=== PATIENT | female | born 1990 | race Caucasian/White ===

== ENCOUNTER 2023-08-03 10:35 | Outpatient (CLI) | payer MEDICAID, SELFPAY ==
[2023-08-03 10:41] VITALS: BP 151/64; PULSE 100; TEMP 35.2
[2023-08-03 10:45] VITALS: RESP 18
--- NOTE | 2023-08-03 10:45 | US_ITS ---
WS: [id number] BIOPHYSICAL PROFILE AND LIMITED OB. HISTORY: gestational diabetes, hypertension COMPARISON: 06/30/2023 Presentation: Vertex. Cervix: Closed and normal length. Placenta: Posterior and fundal. Grade: 1 HEART: FHR of 144BPM. PRICILLA: 15.4 cm Biophysical profile: Parameters are as follows: Breathin Movement: 2 Tone: 2 Fluid volume: 2 IMPRESSION: 1. Biophysical profile score: 8/8. 2. Normal amniotic fluid.
[2023-08-03 10:46] VITALS: BMI 36.6
[2023-08-03 11:01] VITALS: BP 124/60; PULSE 90
[2023-08-03 11:21] VITALS: BP 128/65; PULSE 107
[2023-08-03 11:33] VITALS: BP 128/65; PULSE 107
== END 2023-08-03 11:35 | disposition home or self-care (01) ==
LOC: OPOB 10:36 → OBGYN 10:36
PROVIDERS: PCP Family Medicine; Visit Provider Family Medicine
DX: O24.419 Gestational diabetes mellitus in pregnancy, unspecified control (principal); O16.9 Unspecified maternal hypertension, unspecified trimester; Z3A.00 Weeks of gestation of pregnancy not specified
CPT/HCPCS: 59025; 76819; 99211

== ENCOUNTER 2023-08-12 10:23 | Outpatient (CLI) | payer MEDICAID, SELFPAY ==
--- NOTE | 2023-08-12 10:28 | US_ITS ---
WS: [id number] BIOPHYSICAL PROFILE AMNIOTIC FLUID HISTORY: gestational hypertension and diabetes COMPARISON: 08/03/2023 position: Vertex. Cardiac activity: 141 bpm. Cervix: closed. Placenta: Fundal, no previa. Placenta grade: 1 Parameters are as follows: Breathin Movement: 2 Tone: 2 Fluid volume: 2 Amniotic Fluid Index: 15.9 cm IMPRESSION: 1. Biophysical profile score: 8/8. 2. Normal amniotic fluid.
[2023-08-12 10:37] VITALS: BMI 37.0
[2023-08-12 10:49] VITALS: BP 124/58; PULSE 96
[2023-08-12 11:03] VITALS: BP 118/58; PULSE 95
[2023-08-12 11:05] VITALS: RESP 18
[2023-08-12 11:18] VITALS: BP 130/60; PULSE 100
[2023-08-12 11:33] VITALS: BP 132/60; PULSE 85
== END 2023-08-12 11:48 | disposition home or self-care (01) ==
LOC: OPOB 10:23 → OBGYN 10:35
PROVIDERS: PCP Family Medicine; Visit Provider Family Medicine
DX: O16.9 Unspecified maternal hypertension, unspecified trimester (principal); O24.419 Gestational diabetes mellitus in pregnancy, unspecified control; Z3A.00 Weeks of gestation of pregnancy not specified
CPT/HCPCS: 59025; 76819

== ENCOUNTER 2023-08-17 10:47 | Outpatient (CLI) | payer MEDICAID, SELFPAY ==
[2023-08-17] VITALS (7 sets, daily range): BP systolic 104–130; BP diastolic 65–72; PULSE 91–112; TEMP 35.8; BMI 37.2
[2023-08-17 11:14] LABS: Basophils % 0.4 %; Eosinophils # 0.1 10^3/uL (0.0-0.8); Eosinophils % 0.8 %; Hematocrit 35.7 % (36-47); Lymphocytes # 1.3 10^3/uL (0.8-4.8); Lymphocytes % 12.6 %; Mean Corpuscular HGB Conc 32.8 g/dL (30-55); Mean Corpuscular Hemoglobin 28.7 pg (27-33); Mean Corpuscular Volume 87.5 fl (85-98); Mean Platelet Volume 10.2 fL (7.4-10.4); Monocytes # 0.7 10^3/uL (0.2-0.9); Monocytes % 6.7 %; Neutrophils # 7.88 10^3/uL (1.8-7.7); Neutrophils % 78.5 %; Nucleated Red Blood Cells % 0 %; Platelet Count 217 10^3/cmm (157-399); Red Blood Count 4.08 10^6/uL (3.85-5.65); Red Cell Distribution Width 12.9 % (12.1-15.1); White Blood Count 10.04 10^3/uL (3.29-11.43)
[2023-08-17 11:37] LABS: Bilirubin Urine 1+ (Negative); Blood Urine Trace (Negative); Glucose Urine UA 1+ (Normal); Ketones Urine 1+ (Negative); Leukocyte Esterase Urine 2+ (Negative); Nitrate Urine Negative (Negative); Protein Urine 1+ (Negative); Urine Appearance Cloudy (CLEAR); Urine Color Dark Yellow (Yellow); Urine Creatinine 279 mg/dL (28-217); Urobilinogen Urine 1 mg/dL (Negative); pH Urine 5 (5-7)
[2023-08-17 11:38] LABS: Add Urine Culture? No; Bacteria Urine 2+ /hpf; RBC Urine RARE /hpf (0-2); Squamous Epithelial Cell Urine 15-25 /hpf (0-5); WBC Urine 15-25 /hpf (0-5)
[2023-08-17 12:02] LABS: UPRO/UCREAT Ratio 0.28 mg/mg CR; Urine Protein Random 78 mg/dL
[2023-08-17 12:12] LABS: Alanine Aminotransferase 11 U/L (0-33); Albumin Level 3.4 g/dL (3.5-5.2); Alkaline Phosphatase 80 U/L (35-105); Aspartate Amino Transferase 11 U/L (0-32); Blood Urea Nitrogen 6 mg/dL (6-20); Calcium 8.5 mg/dL (8.5-10.5); Carbon Dioxide 20 mmol/L (22-29); Chloride 110 mmol/L (98-107); Globulin 2.5 g/dL (1.3-4.6); Glomerular Filtration Rate 414.3 mL/min (90-130); Glucose 123 mg/dL (65-115); Osmolality Calculated 293 mOsm/kg (285-295); Sodium 142 mmol/L (136-145); Total Bilirubin 0.2 mg/dL (0.15-1.2); Total Protein 5.9 g/dL (6.6-8.7); Uric Acid 2.1 mg/dL (2.4-5.7)
== END 2023-08-17 12:45 | disposition home or self-care (01) ==
LOC: OPOB 10:47 → OBGYN 10:48
PROVIDERS: PCP Family Medicine; Visit Provider Family Medicine
DX: O26.899 Other specified pregnancy related conditions, unspecified trimester (principal); Z3A.00 Weeks of gestation of pregnancy not specified
CPT/HCPCS: 36415; 59025; 80053; 81001; 82570; 84156; 84550; 85025; 99211

== ENCOUNTER 2023-08-20 10:25 | Outpatient (CLI) | payer MEDICAID, SELFPAY ==
[2023-08-20 10:25] VITALS: BMI 37.8
[2023-08-20 10:38] VITALS: TEMP 35.9
[2023-08-20 10:39] VITALS: BP 123/60; PULSE 98
[2023-08-20 10:59] VITALS: BP 121/58; PULSE 96
--- NOTE | 2023-08-20 11:03 | US_ITS ---
WS: [id number] BIOPHYSICAL PROFILE AND LIMITED OB. HISTORY: WELL BEING, gestational HYPERTENSION AND GESTATIONAL diabetes COMPARISON: 08/12/2023 Presentation: Vertex. Cervix: Closed and normal length. Placenta: Fundal. No previa. Grade: 1 HEART: FHR of 141BPM. Biophysical profile: Parameters are as follows: Breathin Movement: 2 Tone: 2 Fluid volume: 2 Amniotic fluid index: 13.9 cm. IMPRESSION: 1. Biophysical profile score: 8/8. 2. Normal amniotic fluid.
[2023-08-20 11:37] LABS: Urine Creatinine 201 mg/dL (28-217)
[2023-08-20 11:38] LABS: UPRO/UCREAT Ratio 0.21 mg/mg CR; Urine Protein Random 43 mg/dL
[2023-08-20 12:05] VITALS: BP 121/58; PULSE 96
== END 2023-08-20 11:55 | disposition home or self-care (01) ==
LOC: OPOB 10:25 → OBGYN 10:26
PROVIDERS: PCP Family Medicine; Visit Provider Family Medicine
DX: O26.899 Other specified pregnancy related conditions, unspecified trimester (principal); Z3A.00 Weeks of gestation of pregnancy not specified
CPT/HCPCS: 59025; 76819; 82570; 84156; 99211

== ENCOUNTER 2023-08-26 09:35 | Outpatient (CLI) | payer MEDICAID, SELFPAY ==
[2023-08-26 09:35] VITALS: BMI 38.2
[2023-08-26 09:46] VITALS: BP 132/70; PULSE 110
--- NOTE | 2023-08-26 09:49 | US_ITS ---
WS: [id number] BIOPHYSICAL PROFILE AND LIMITED OB. HISTORY: GESTIONAL HYPERTENSION AND GESTIONAL DIABETIC COMPARISON: 08/20/2023 Presentation: Vertex Cervix: Closed and normal length. Placenta: Fundal, no previa. Grade: 1 HEART: FHR of 136BPM. Biophysical profile: Parameters are as follows: Breathin Movement: 2 Tone: 2 Fluid volume: 2 Amniotic fluid index: 10.8 cm. IMPRESSION: 1. Biophysical profile score: 8/8. 2. Normal amniotic fluid.
[2023-08-26 10:06] VITALS: BP 144/67; PULSE 104
[2023-08-26 10:27] VITALS: BP 129/63; PULSE 97
[2023-08-26 10:47] VITALS: BP 132/63; PULSE 86
[2023-08-26 12:21] LABS: Urine Creatinine 206 mg/dL (28-217)
[2023-08-26 12:22] LABS: UPRO/UCREAT Ratio 0.26 mg/mg CR; Urine Protein Random 53 mg/dL
== END 2023-08-26 11:00 | disposition home or self-care (01) ==
LOC: OPOB 09:36 → OBGYN 09:37
PROVIDERS: Absent Provider Family Medicine; PCP Family Medicine; Visit Provider Family Medicine
DX: O24.419 Gestational diabetes mellitus in pregnancy, unspecified control (principal); Z3A.00 Weeks of gestation of pregnancy not specified; O16.9 Unspecified maternal hypertension, unspecified trimester
CPT/HCPCS: 59025; 76819; 82570; 84156; 99211

== ENCOUNTER 2023-08-26 16:57 | Inpatient (IN) | payer MEDICAID, SELFPAY ==
[2023-08-26] VITALS (31 sets, daily range): BP systolic 101–162; BP diastolic 58–74; PULSE 88–136; RESP 14–18; TEMP 35.5–36.1; BMI 38.2
--- NOTE | 2023-08-26 17:18 | P.HP_ITS ---
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 The patient has a history of gestational hypertension and gestational diabetes. Patient is also on Keppra for seizure disorder. Patient's had a fairly unremarkable course. The patient has had good control of her glucose and blood pressure has remained fairly well controlled with a few severe's noted throughout . Patient went to [facility] and had serial ultrasounds without any concerns. The patient also has been undergoing NST with biophysical profiles weekly and they have all been reassuring and normal. labs were unremarkable. GBS was negative. Patient denies any contractions. Patient reports good movement. She has not had any vaginal bleeding or loss of fluid Present Details : 2 Para: 1 Labs Rubella: Immune RPR: Negative GBS: Negative Review of Systems General: Reports: 10 or more systems reviewed and unremarkable except in HPI and below Medications/Allergies Home Medications Medication Instructions Recorded Confirmed Last Taken Type levetiracetam 1,000 mg tablet 1,000 mg PO BID 05/19/23 05/28/23 Unknown History levetiracetam 500 mg tablet 500 mg PO DAILY 05/19/23 05/28/23 Unknown History Allergies Allergy/AdvReac Type Severity Reaction Status Date / Time No Known Allergies Allergy Unverified 05/28/23 15:04 History History History 2 Term Miscarriages/Ectopic Living Children 1 Vitals/I&O/Wt Last Vital Signs Temp 95.9 F L 08/26/23 17:03 Pulse 136 H 08/26/23 17:03 BP 143/74 08/26/23 17:03 Physical Exam Const: COMMON NORMALS: no acute distress Resp: COMMON NORMALS: normal respiratory effort and No retractions Cardio: COMMON NORMALS: no JVD and regular rate Extremity: COMMON NORMALS: no clubbing, cyanosis or edema Neuro: COMMON NORMALS: patient oriented x3, moves all extremities, no focal motor deficits and no sensory deficits noted Psych: COMMON NORMALS: mental status grossly normal Skin: COMMON NORMALS: no rashes or lesions noted Results Labs OB ([facility]): Obstetrics US 06/30/23 Obstetrics US/Biophysical Profile Hct 35.7 % (36-47) L 08/17/23 Hgb 11.70 g/dL (11.27-16.99) 08/17/23 Plt Count 217 10^3/cmm (157-399) 08/17/23 Uric Acid 2.1 mg/dL (2.4-5.7) L 08/17/23 A&P Assessment and plan (1) Gestational diabetes mellitus (GDM) affecting second : (2) Gestational hypertension affecting second : (3) Term , repeat: Patient presents today for induction of labor for gestational diabetes and gestational hypertension. Patient has been fairly well controlled with glucose since failing her 3-hour glucose tolerance test. Patient did have advanced dilation 2 cm in the office 2 days ago so we will proceed with Pitocin induction today. Proceed with routine labor management. Patient may have epidural as desired. We will proceed with fentanyl protocol for initial pain relief. Attestations Medical Necessity Statement*: Patient is admitted for induction of labor due to gestational diabetes and gestational hypertension. Coding Level of Care Code Acute Code for Chg Fwd Diagnoses Gestational diabetes mellitus (GDM) affecting second O24.419 Gestational hypertension affecting second O13.9 Term , repeat Z34.90
[2023-08-26] MEDS: oxytocin 30 UNIT/500 ML BAG IV (18:00)
[2023-08-26] MEDS: dextrose 5%-lactated ringers 1,000 ML 125 ML IV (18:00)
[2023-08-26 18:33] LABS: Basophils % 0.2 %; Eosinophils # 0.1 10^3/uL (0.0-0.8); Eosinophils % 0.6 %; Hematocrit 34.4 % (36-47); Lymphocytes # 1.9 10^3/uL (0.8-4.8); Lymphocytes % 14.3 %; Mean Corpuscular HGB Conc 32.6 g/dL (30-55); Mean Corpuscular Hemoglobin 28.3 pg (27-33); Mean Corpuscular Volume 86.9 fl (85-98); Mean Platelet Volume 10.4 fL (7.4-10.4); Monocytes % 7.6 %; Neutrophils # 9.93 10^3/uL (1.8-7.7); Neutrophils % 76.1 %; Nucleated Red Blood Cells % 0 %; Platelet Count 246 10^3/cmm (157-399); Red Blood Count 3.96 10^6/uL (3.85-5.65); Red Cell Distribution Width 12.9 % (12.1-15.1); White Blood Count 13.06 10^3/uL (3.29-11.43)
[2023-08-27] VITALS (98 sets, daily range): BP systolic 106–193; BP diastolic 53–91; PULSE 71–112; RESP 16–20; TEMP 36.1–37.4; O2SAT 88–99
[2023-08-27] MEDS: dextrose 5%-lactated ringers 1,000 ML 125 ML IV (01:46)
[2023-08-27] MEDS: lactated ringers 1,000 ML 999 ML IV ×2 (05:01→05:52)
--- NOTE | 2023-08-27 05:10 | ANES.PREANE2 ---
Pre-Anesthetic Assessment Height/Weight: Height 1.63 m Weight 101.151 kg Temp Pulse Resp BP Pulse Ox O2 Del Method 96.1 F L 74 14 127/59 99 Room Air 08/26/23 20:38 08/27/23 05:28 08/26/23 17:33 08/27/23 05:28 08/27/23 05:26 08/26/23 17:29 Preop Diagnosis: IUP labor epidural Familial anesthetic complications: none Was Beta Sachin taken within 24 hours: N/A Was Clonidine taken within 24 hours: N/A Social No alcohol and No tobacco Exam alert and oriented x 3 Airway Submandibular: within normal limits Cervical ROM: within normal limits Mallampati: Class IV Dentition: false CV/HEM Hypertension (gestational) GI Gastroesophageal Reflux Disease Metabolic Diabetes Mellitus (gestational) Neuropsych Seizure (epilepsy, last seizure 2013.) Anesthetic Plan ASA status: 3 Anesthesia: Anesthesia Evaluation and Regional (specify below) Medications/Allergies Home Medications Medication Instructions Recorded Confirmed Last Taken Type levetiracetam 1,000 mg tablet 1,000 mg PO BID 05/19/23 05/28/23 Unknown History levetiracetam 500 mg tablet 500 mg PO DAILY 05/19/23 05/28/23 Unknown History Allergies Allergy/AdvReac Type Severity Reaction Status Date / Time No Known Allergies Allergy Unverified 05/28/23 15:04 Current Medications Generic Name Dose Route Start Last Admin Trade Name Freq PRN Reason Stop Dose Admin Dextrose/Lactated Ringer's 1,000 mls @ 125 mls/hr 08/26/23 17:45 08/27/23 01:46 Dextrose 5%-Lactated Ringers IV 125 mls/hr .Q8H MAGDA Administration Oxytocin 30 unit in 500 mls @ 1 mls/hr 08/26/23 17:45 08/27/23 03:15 Pitocin IV 17 milliunit/min .Q24H MAGDA 17 mls/hr Titration Protocol 1 MILLIUNIT/MIN Lactated Ringer's 1,000 mls @ 999 mls/hr 08/26/23 21:00 08/27/23 05:01 Lactated Ringers IV 999 mls/hr .Q1H1M PRN Administration See label comments Ropivacaine 100 mg in 50 mls @ 10 mls/hr 08/26/23 21:00 08/27/23 05:27 Naropin Syringe EPIDURAL 10 mls/hr .Q5H MAGDA Administration PFSH Anesthesia Female Reproductive History : 3 Data Anesthesia 08/26/23 17:20 Short CBC 08/26/23 Range/Units 17:20 WBC 13.06 H (3.29-11.43) 10^3/uL Hgb 11.20 L (11.27-16.99) g/dL Hct 34.4 L (36-47) % MCV 86.9 (85-98) fl Plt Count 246 (157-399) 10^3/cmm Neut % (Auto) 76.1 % Neut # (Auto) 9.93 H (1.8-7.7) 10^3/uL Blood Bank 08/26/23 17:20 Blood Type A Positive Rho(D) Type Rh positive Antibody Screen Negative Cardiac Studies: No Data to Display
[2023-08-27] MEDS: ROPivacaine syringe 100 MG/50 ML SYRINGE 10 MG EPIDURAL (05:27)
--- NOTE | 2023-08-27 05:29 | ANES.PROC ---
Anesthesia Procedures Procedure/Date: 08/27/23 Epidural: Time Out Performed: Yes Consent: from patient, risks and benefits reviewed and patient agrees to proceed Lumbar Level: L4-L5 Epidural position: sitting Epidural procedure: sterile prep of area, 1% lidocaine to numb the area, 18 g needle, negative for paresthesia passed, neg for paresthesia, test dose given, 1.5% xylocaine 1:200k epi, placed PCEA, no systemic response, sterile dressing applied, L.U.D. no apparent complications and 0.2% Ropiavacaine @ mls/hr (10) Additional Comments: PARRIS at 5, negative blood/CSF upon aspiration. taped at 12 at skin
--- NOTE | 2023-08-27 06:34 | PM.OBGYPN ---
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 Patient received Pitocin overnight and had slow increase in contractions and intensity. Patient has had dilated to 7 cm. Patient has received an epidural and is now fairly comfortable. heart tones have been reassuring. Labor: Station: -3 Amniotic Membrane Status: Intact Monitor Mode: External Contraction Pattern: Regular Status: Category I Vitals/I&O/Wt Last Vital Signs Temp 96.1 F L 08/26/23 20:38 Pulse 100 08/27/23 06:31 Resp 14 08/26/23 17:33 BP 128/58 08/27/23 06:27 Pulse Ox 98 08/27/23 06:31 O2 Del Method Room Air 08/26/23 17:29 08/26/23 08/26/23 08/27/23 14:59 22:59 06:59 Intake Total 17.0 / 17.0 2312.500 / 2329.500 Balance 17.0 / 17.0 2312.500 / 2329.500 Weight last 48 hrs Weight 101.151 kg Weight 101.151 kg Physical Exam Const: COMMON NORMALS: no acute distress and patient oriented x3 Neck/C-Spine: COMMON NORMALS: no JVD Resp: COMMON NORMALS: normal respiratory effort and No retractions Cardio: COMMON NORMALS: no JVD and regular rate RATE: regular rate Extremity: COMMON NORMALS: no clubbing, cyanosis or edema Neuro: COMMON NORMALS: patient oriented x3, moves all extremities, no focal motor deficits and no sensory deficits noted Psych: COMMON NORMALS: mental status grossly normal Skin: COMMON NORMALS: no rashes or lesions noted GENERAL SKIN EXAM: no rashes or lesions noted Urinary Catheter Management: [place]: Cath Placed During This Visit: yes Reason for Continuing Indwelling Catheter: Required Immobilization for Trauma or Surgery or Anesthesia Urinary Catheter Date of Insertion: 08/27/23 Urinary Catheter Time of Insertion: 06:00 Data 08/26/23 17:20 A&P Assessment and plan (1) Gestational diabetes mellitus (GDM) affecting second : (2) Gestational hypertension affecting second : (3) Term , repeat: Continue with labor management. After informed consent was obtained, artificial rupture of membranes was performed without difficulty. She tolerated the procedure well. Clear fluid noted. Attestations Medical Necessity Statement*: Patient admitted for induction of labor secondary to gestational diabetes and hypertension. Anticipate at least 2 midnight stay. Coding Level of Care Code Acute Code for Chg Fwd Diagnoses Gestational diabetes mellitus (GDM) affecting second O24.419 Gestational hypertension affecting second O13.9 Term , repeat Z34.90
[2023-08-27] MEDS: ROPivacaine syringe 100 MG/50 ML SYRINGE 13 MG EPIDURAL (06:53)
--- NOTE | 2023-08-27 09:23 | PM.DELIVERY ---
Delivery Note: Date of delivery: August 27, 2023 Pre-delivery diagnoses: Term , gestational diabetes, gestational hypertension Post-delivery diagnoses: Same, viable female Procedure: Spontaneous vaginal delivery Delivering Physician: Dr. Lv Bains Estimated blood loss (mL): 300 Pre-Delivery Course: This is a 33-year-old G3, P2 that presented at 38 weeks for induction of labor secondary to gestational diabetes and gestational hypertension. Patient was started on Pitocin and eventually went into good contraction pattern and patient progressed as expected. No heart tone concerns prior to delivery. Delivery: Once patient was completed the patient was placed into normal lithotomy position and started pushing with each contraction. head made good progress with each push until delivery of infant's head was accomplished followed by infants body. Nuchal cord x1 was noted and was delivered through. Infant was placed on mother's abdomen and after delay the cord was clamped and cut. Delivery of the placenta occurred soon after. Review of the perineum showed small periurethral tear towards the right side that was actively bleeding. Suture was placed and bleeding subsided. Uterus was firm and bleeding was controlled. Post-Delivery Status: Stable History History History 3 Term Miscarriages/Ectopic 1 Living Children 1 A&P Assessment and plan (1) Gestational diabetes mellitus (GDM) affecting second : Continue to monitor blood sugars as needed (2) Gestational hypertension affecting second : Monitor blood pressure (3) Vaginal delivery: Proceed with routine post care. Coding Level of Care Code Acute Code for Chg Fwd Diagnoses Gestational diabetes mellitus (GDM) affecting second O24.419 Gestational hypertension affecting second O13.9 Vaginal delivery O80
[2023-08-27] MEDS: oxytocin 30 UNIT/500 ML BAG 999 UNIT IV (09:26)
[2023-08-27] MEDS: lidocaine 2% INJ 20 mL INJECTION (09:26)
[2023-08-27] MEDS: ibuprofen 800 mg tablet PO ×2 (15:00→22:13)
[2023-08-27] MEDS: flu vacc pf 2023-24 (6 mos+) 60 MCG IM (22:10)
[2023-08-27] MEDS: docusate sodium 100 mg Capsule PO (22:13)
[2023-08-27 22:35] LABS: Hematocrit 32.1 % (36-47); Mean Corpuscular HGB Conc 32.4 g/dL (30-55); Mean Corpuscular Volume 86.5 fl (85-98); Mean Platelet Volume 10.3 fL (7.4-10.4); Platelet Count 212 10^3/cmm (157-399); Red Blood Count 3.71 10^6/uL (3.85-5.65); Red Cell Distribution Width 12.9 % (12.1-15.1); White Blood Count 13.62 10^3/uL (3.29-11.43)
[2023-08-28 04:00] VITALS: BP 112/69; PULSE 69; RESP 15; TEMP 36.9; O2SAT 98
--- NOTE | 2023-08-28 07:16 | P.DS_ITS ---
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 Patient started on Pitocin and progressed as expected. The patient then delivered a viable female vaginally without difficulty. There were no complications during delivery. Patient had 1 small periurethral tear that was repaired. Her care was unremarkable. Patient is able to ambulate and urinate without difficulty. Patient's pain was well controlled. Lochia is appropriate. Information Peripartum Data: Infant Delivery Method: Vaginal Laceration description: Periurethral - 1st Degree Episiotomy description: None complications: none Physical Exam Const: COMMON NORMALS: no acute distress and patient oriented x3 Neck/C-Spine: COMMON NORMALS: no JVD Resp: COMMON NORMALS: normal respiratory effort and No retractions Cardio: COMMON NORMALS: no JVD and regular rate RATE: regular rate Extremity: COMMON NORMALS: no clubbing, cyanosis or edema Neuro: COMMON NORMALS: patient oriented x3, moves all extremities, no focal motor deficits and no sensory deficits noted Psych: COMMON NORMALS: mental status grossly normal Skin: COMMON NORMALS: no rashes or lesions noted GENERAL SKIN EXAM: no rashes or lesions noted Urinary Catheter Management: [place]: Cath Placed During This Visit: yes Reason for Continuing Indwelling Catheter: Required Immobilization for Trauma or Surgery or Anesthesia Urinary Catheter Date of Insertion: 08/27/23 Urinary Catheter Time of Insertion: 06:00 History History History 3 Term Miscarriages/Ectopic 1 Living Children 2 Discharge Data Studies Completed and Pending Laboratory Results WBC 13.62 10^3/uL (3.29-11.43) H 08/27/23 22:25 RBC 3.71 10^6/uL (3.85-5.65) L 08/27/23 22:25 Hgb 10.40 g/dL (11.27-16.99) L 08/27/23 22:25 Hct 32.1 % (36-47) L 08/27/23 22:25 MCV 86.5 fl (85-98) 08/27/23 22:25 MCH 28.0 pg (27-33) 08/27/23 22:25 MCHC 32.4 g/dL (30-55) 08/27/23 22:25 RDW 12.9 % (12.1-15.1) 08/27/23 22:25 Plt Count 212 10^3/cmm (157-399) 08/27/23 22:25 MPV 10.3 fL (7.4-10.4) 08/27/23 22:25 Neut % (Auto) 76.1 % 08/26/23 17:20 Lymph % (Auto) 14.3 % 08/26/23 17:20 [place] % (Auto) 7.6 % 08/26/23 17:20 Eos % (Auto) 0.6 % 08/26/23 17:20 Baso % (Auto) 0.2 % 08/26/23 17:20 Neut # (Auto) 9.93 10^3/uL (1.8-7.7) H 08/26/23 17:20 Lymph # (Auto) 1.9 10^3/uL (0.8-4.8) 08/26/23 17:20 [place] # (Auto) 1.0 10^3/uL (0.2-0.9) H 08/26/23 17:20 Eos # (Auto) 0.1 10^3/uL (0.0-0.8) 08/26/23 17:20 Baso # (Auto) 0.0 10^3/uL (0.0-0.1) 08/26/23 17:20 Nucleated RBC % (auto) 0 % 08/26/23 17:20 Nucleated RBCs # 0.0 /100WBC 08/26/23 17:20 Blood Type A Positive 08/26/23 17:20 Rho(D) Type Rh positive 08/26/23 17:20 Antibody Screen Negative 08/26/23 17:20 Vitals Last Vital Signs Temp 98.4 F 08/28/23 04:00 Pulse 69 08/28/23 04:00 Resp 15 08/28/23 04:00 BP 112/69 08/28/23 04:00 Pulse Ox 98 08/28/23 04:00 O2 Del Method Room Air 08/28/23 04:00 Results Labs OB ([facility]): Obstetrics US 06/30/23 Obstetrics US/Biophysical Profile Blood Type A Positive 08/26/23 Antibody Screen Negative 08/26/23 Hct 32.1 % (36-47) L 08/27/23 Hgb 10.40 g/dL (11.27-16.99) L 08/27/23 Rho(D) Type Rh positive 08/26/23 Plt Count 212 10^3/cmm (157-399) 08/27/23 Uric Acid 2.1 mg/dL (2.4-5.7) L 08/17/23 Discharge Plan Discharge Patient Disposition: Home Condition: Stable Prescriptions: Continued levetiracetam 500 mg tablet 500 mg PO DAILY levetiracetam 1,000 mg tablet 1,000 mg PO BID Discharge Orders: Discharge Order (Routine); Ordered 08/28/23 Ordered By: Lv Bains Referrals: Lv Bains MD [Primary Care Provider] - 6 Weeks Discharge Diet: Usual diet Discharge Activity: Limit activity as instructed Patient Instructions: Opioid Safety Discharge Attestations MARKET RESEARCH MANAGER Time Spent in Discharge Care*: less than 30 min Coding Level of Care Code Acute Code for Chg Fwd Diagnoses Gestational diabetes mellitus (GDM) affecting second O24.419 Gestational hypertension affecting second O13.9 Vaginal delivery O80
[2023-08-28] MEDS: measles,mumps,rubella pf Vial (w/diluent) 0.5 ML SUBCUT (07:41)
[2023-08-28 08:00] VITALS: BP 118/77; PULSE 84; RESP 18; TEMP 36.8
--- NOTE | 2023-08-28 08:00 | ANE.PACU2 ---
Inpatient post-anesthesia follow up: Airway intact: Yes Vital signs: Temperature 98.4 F Pulse Rate 70 Respiratory Rate 16 Blood Pressure 128/72 Pulse Oximetry 98 Oxygen Delivery Me thod Room Air Oxygen Flow Rate Fraction of Inspir ed Oxygen Hydration adequate: Yes Nausea and vomiting: No Pain level: 1 Mental status: Baseline
[2023-08-28] MEDS: docusate sodium 100 mg Capsule PO (09:04)
[2023-08-28] MEDS: ibuprofen 800 mg tablet PO (09:04)
[2023-08-28] MEDS: prenatal vitamin Capsule 1 CAP PO (09:04)
[2023-08-28 10:30] VITALS: BP 128/72; PULSE 70; RESP 16; TEMP 36.9
[2023-08-28 11:51] VITALS: BP 128/72; PULSE 70; RESP 16; TEMP 36.9
== END 2023-08-28 10:40 | disposition home or self-care (01) | DRG 807 ==
LOC: OPOB 16:58 → OBGYN 16:58
PROVIDERS: Admitting Provider Family Medicine; Family Provider Family Medicine; PCP Family Medicine; Visit Provider Family Medicine
DX: O24.429 Gestational diabetes mellitus in childbirth, unspecified control (principal); Z37.0 Single live birth; O13.4 Gestational [pregnancy-induced] hypertension without significant proteinuria, complicating childbirth; O69.81X0 Labor and delivery complicated by cord around neck, without compression, not applicable or unspecified; O71.82 Other specified trauma to perineum and vulva; Z3A.38 38 weeks gestation of pregnancy
CPT/HCPCS: 36415; 51702; 59025; 85025; 85027; 86850; 86900; 90471; 90686; 90707; 96372; 99211; J2590; J2795; J7120; J7121

== ENCOUNTER → 2023-09-15 13:23 | Outpatient (BNVA) | payer MEDICAID, SELFPAY | PROVIDERS: Family Provider Family Medicine; PCP Family Medicine; Visit Provider Psychiatry & Neurology Neurology | DX: G40.909 Epilepsy, unspecified, not intractable, without status epilepticus (principal) | CPT/HCPCS: 36415; 80177 ==

== ENCOUNTER 2024-08-14 20:22 | Emergency (ER) | payer MEDICAID, SELFPAY ==
[2024-08-14 20:23] VITALS: BP 137/74; PULSE 69; RESP 16; TEMP 36.9; O2SAT 96; BMI 45.3
[2024-08-14 21:10] LABS: HCG Qualitative Urine. Negative (Negative)
--- NOTE | 2024-08-14 21:12 | ED.C_ITS ---
HPI - Psych 2 General: Chief Complaint: Psychiatric Symptoms Stated Complaint: behavior Time Seen by Provider: 08/14/24 20:40 History of Present Illness: This patient is a 34-year-old white female who presents to the emergency department stating that she has been crying a lot over the past month. She has had thoughts of cutting herself earlier today. She says she has been stressed out about having to move. She states she is very worried about these thoughts actually coming to reality and she does hurt herself. She states she has had no prior suicide attempts. She states she has no psychiatric diagnoses. She does have a history of seizure disorder and states the only medication she takes is for her seizures. Associated symptoms: Reports suicidal ideation Related Data Previous Rx's Medication Instructions Recorded levetiracetam 1,000 mg tablet 1,000 mg PO BID #60 tabs 04/06/24 levetiracetam 500 mg tablet 500 mg PO DAILY #30 tabs 04/06/24 Allergies Allergy/AdvReac Type Severity Reaction Status Date / Time No Known Allergies Allergy Verified 04/06/24 14:12 Review of Systems 2 General: Reports: 10 or more systems reviewed and unremarkable except in HPI and below Psych: Reports: suicidal ideation PFSH ED 2 PFSH: Medical History Term , repeat Gestational hypertension affecting second Gestational diabetes mellitus (GDM) affecting second Social History Smoking and tobacco/nicotine status: never used tobacco/nicotine Physical Exam 2 Const: COMMON NORMALS: no acute distress, patient oriented x3 and no limitations GENERAL APPEARANCE: cooperative and comfortable HENMT: COMMON NORMALS: normocephalic, atraumatic, Normal nasal mucous membranes and turbinates present, moist oral mucous membranes and oropharynx normal HEAD & SCALP: normal to inspection, normocephalic and atraumatic F BOUCHRA & SINUS: normal facial exam NOSE: Normal nasal mucous membranes and turbinates present Eye: COMMON NORMALS: Equal, round and reactive pupils present, EOMs intact bilaterally and conjunctivae normal GENERAL EYE: appearance normal, both eyes and all related structures CONJUNCTIVA: Yes conjunctivae normal PUPIL: Yes Equal, round and reactive pupils present Neck/C-Spine: COMMON NORMALS: supple and no JVD Chest: COMMONS NORMALS: normal inspection of the chest Resp: COMMON NORMALS: normal respiratory effort and clear to auscultation bilaterally AUSCULTATION: clear to auscultation bilaterally Cardio: COMMON NORMALS: no JVD, regular rate, regular rhythm, No gallops present (Cardio), No murmurs present (Cardio) and No rub (Cardio) RATE: r egular rate RHYTHM: regular rhythm GI: COMMON NORMALS: Normal to inspection, nondistended, normoactive bowel sounds present, Soft to palpation and non-tender AUSCULTATION: Yes normoactive bowel sounds PALPATION: Yes Soft to palpation : COMMON NORMALS: Yes no CVA tenderness BLADDER/KIDNEY EXAM: Yes no CVA tenderness Back/Pelvis: COMMON NORMALS: no CVA tenderness and thoracic and lumbar spine normal to inspection Extremity: COMMON NORMALS: normal to inspection Neuro: COMMON NORMALS: patient oriented x3 and CN's II-XII intact bilaterally Psych: COMMON NORMALS: mental status grossly normal and cooperative A PPEARANCE: Yes bizarre ATTITUDE: Yes calm ACTIVITY/MOTOR BEHAVIOR: Yes psychomotor slowing SPEECH: Yes soft MOOD & AFFECT: Yes depressed mood and Yes tearful THOUGHT CONTENT: Yes Suicidality present A TTENTION/CONCENTRATION: Yes attention grossly intact MEMORY/COGNITION: Yes memory grossly intact INSIGHT: Limited insight present (Psych) JUDGEMENT: Limited judgement present (Psych) Skin: COMMON NORMALS: no rashes or lesions noted, turgor normal and no jaundice GENERAL SKIN EXAM: no rashes or lesions noted and turgor normal Course 2 Vital Signs: Vital signs: Vital Signs Temperature 98.4 F 08/14/24 20:23 Pulse Rate 69 08/14/24 20:23 Respiratory Rate 16 08/14/24 20:23 Blood Pressure 137/74 08/14/24 20:23 Pulse Oximetry 96 08/14/24 20:23 Oxygen Delivery Me thod Room Air 08/14/24 20:23 MDM - Psych Medical Decision Making This patient will need to be admitted for psychiatric evaluation and treatment. Labs are pending. We do not have any beds available at this facility. Once laboratory studies are complete staff will start looking for an available bed for the patient. She is stable. Lab Data 08/14/24 21:18 08/14/24 21:18 Laboratory Results WBC 7.30 10^3/uL (3.29-11.43) 08/14/24 21:18 RBC 4.90 10^6/uL (3.85-5.65) 08/14/24 21:18 Hgb 13.90 g/dL (11.27-16.99) 08/14/24 21:18 Hct 42.0 % (36-47) 08/14/24 21:18 MCV 85.7 fl (85-98) 08/14/24 21:18 MCH 28.4 pg (27-33) 08/14/24 21:18 MCHC 33.1 g/dL (30-55) 08/14/24 21:18 RDW 13.0 % (12.1-15.1) 08/14/24 21:18 Plt Count 271 10^3/cmm (157-399) 08/14/24 21:18 MPV 9.8 fL (7.4-10.4) 08/14/24 21:18 Neut % (Auto) 70.1 % 08/14/24 21:18 Lymph % (Auto) 21.1 % 08/14/24 21:18 [place] % (Auto) 5.2 % 08/14/24 21:18 Eos % (Auto) 2.6 % 08/14/24 21:18 Baso % (Auto) 0.7 % 08/14/24 21:18 Neut # (Auto) 5.12 10^3/uL (1.8-7.7) 08/14/24 21:18 Lymph # (Auto) 1.5 10^3/uL (0.8-4.8) 08/14/24 21:18 [place] # (Auto) 0.4 10^3/uL (0.2-0.9) 08/14/24 21:18 Eos # (Auto) 0.2 10^3/uL (0.0-0.8) 08/14/24 21:18 Baso # (Auto) 0.1 10^3/uL (0.0-0.1) 08/14/24 21:18 Nucleated RBC % (auto) 0 % 08/14/24 21:18 Nucleated RBCs # 0.0 /100WBC 08/14/24 21:18 HCG, Qual Negative (Negative) 08/14/24 20:50 Urine Opiates Screen Negative ng/mL (Negative) 08/14/24 20:50 Ur Barbiturates Screen Negative ng/mL (Negative) 08/14/24 20:50 Ur Phencyclidine Scrn Negative ng/mL (Negative) 08/14/24 20:50 Ur Amphetamines Screen Negative ng/mL (Negative) 08/14/24 20:50 U Benzodiazepines Scrn Negative ng/mL (Negative) 08/14/24 20:50 Urine Cocaine Screen Negative ng/mL (Negative) 08/14/24 20:50 U Marijuana (THC) Screen Positive ng/mL (Negative) H 08/14/24 20:50 No radiology studies performed this visit Discharge Plan Discharge Patient Disposition: Xfer Psychiatric Hosp Clinical Impression: Suicidal ideation Condition: Stable Referrals: Lv Bains MD [Primary Care Provider] - Coding Level of Care Code ED 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
[2024-08-14 21:24] LABS: Amphetamines Screen Urine Negative (Negative); Barbiturates Screen Urine Negative (Negative); Benzodiazepines Screen Urine Negative (Negative); Cocaine Screen Urine Negative (Negative); Opiate Screen Urine Negative (Negative); PCP Screen Urine Negative (Negative); THC Screen Urine Positive (Negative)
[2024-08-14 21:26] LABS: Basophils # 0.1 10^3/uL (0.0-0.1); Basophils % 0.7 %; Eosinophils # 0.2 10^3/uL (0.0-0.8); Eosinophils % 2.6 %; Lymphocytes # 1.5 10^3/uL (0.8-4.8); Lymphocytes % 21.1 %; Mean Corpuscular HGB Conc 33.1 g/dL (30-55); Mean Corpuscular Hemoglobin 28.4 pg (27-33); Mean Corpuscular Volume 85.7 fl (85-98); Mean Platelet Volume 9.8 fL (7.4-10.4); Monocytes # 0.4 10^3/uL (0.2-0.9); Monocytes % 5.2 %; Neutrophils # 5.12 10^3/uL (1.8-7.7); Neutrophils % 70.1 %; Nucleated Red Blood Cells % 0 %; Platelet Count 271 10^3/cmm (157-399)
--- NOTE | 2024-08-14 21:30 | ECG_ITS ---
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 Measurements Intervals [place] Rate: 75 P: 18 W[place]: 125 QRS: 18 QRSD: 89 T: 12 QT: 397 QTc: 444 Interpretive Statements SINUS RHYTHM No previous ECG available for comparison Electronically Signed On 08-18-2024 21:33:40 MANAGER UTILIZATION REVIEW by Ramakrishna Rodriguez M.D. [email or web address]
[2024-08-14 21:55] LABS: Alanine Aminotransferase 37 U/L (0-33); Albumin Level 4.2 g/dL (3.5-5.2); Alkaline Phosphatase 63 U/L (35-105); Anion Gap 15.3 (5-19); Aspartate Amino Transferase 21 U/L (0-32); Blood Urea Nitrogen 11 mg/dL (6-20); Calcium 9.4 mg/dL (8.5-10.5); Carbon Dioxide 25 mmol/L (22-29); Chloride 104 mmol/L (98-107); Globulin 2.4 g/dL (1.3-4.6); Glucose 145 mg/dL (65-115); Osmolality Calculated 294 mOsm/kg (285-295); Potassium 3.3 mmol/L (3.5-5.1); Sodium 141 mmol/L (136-145); Thyroid Stimulating Hormone 0.95 uIU/mL (0.27-4.20); Total Bilirubin 0.3 mg/dL (0.15-1.2); Total Protein 6.6 g/dL (6.6-8.7)
[2024-08-14 21:57] LABS: Acetaminophen < 5.0 ug/mL (10-30); Salicylate < 0.3 mg/dL (3-10)
[2024-08-14 22:05] LABS: Bilirubin Urine Negative (Negative); Blood Urine Negative (Negative); Glucose Urine UA Negative (Normal); Ketones Urine Trace (Negative); Leukocyte Esterase Urine 1+ (Negative); Nitrate Urine Negative (Negative); Protein Urine Trace (Negative); Urine Appearance Cloudy (CLEAR); Urine Color Yellow (Yellow); pH Urine 5.5 (5-7)
[2024-08-14 22:10] LABS: Add Urine Microscopic? YES; Bacteria Urine 4+ /hpf; Hyaline Casts Urine 1.65 /lpf
[2024-08-14 22:13] LABS: Alcohol Level < 10 mg/dL (0-10)
[2024-08-14 22:19] LABS: Add Urine Culture? No; Specific Gravity, Urine 1.033 (1.005-1.030); UA Slide Review UA Slide Review Perf
[2024-08-14 23:22] LABS: Covid PCR NEGATIVE (Negative); Influenza A NEGATIVE (Negative); Influenza B NEGATIVE (Negative); Respiratory Syncytial Virus Ce NEGATIVE (Negative)
[2024-08-15 05:51] VITALS: BP 118/65; PULSE 82; O2SAT 99
--- NOTE | 2024-08-15 06:26 | PC.NURSE ---
report called to JORGE Cruz at [facility]
[2024-08-15 09:00] VITALS: BP 121/70; PULSE 88; O2SAT 99
[2024-08-15 09:16] VITALS: BP 121/70; PULSE 88; O2SAT 99
== END 2024-08-15 09:24 ==
PROVIDERS: Emergency Provider Emergency Medicine; PCP Family Medicine
DX: R45.851 Suicidal ideations (principal)
CPT/HCPCS: 0241U; 36415; 80053; 80306; 80307; 81001; 81025; 84443; 85025; 93005; 99285

== ENCOUNTER 2024-10-04 06:35 | Emergency (ER) | payer MEDICAID, SELFPAY ==
--- NOTE | 2024-10-04 06:39 | XRR_ITS ---
PROCEDURE INFORMATION: Exam: XR Right Ankle Exam date and time: 10/04/2024 6:41 AM Age: 34 years old Clinical indication: Injury or trauma; Fall; Blunt trauma; Ankle; Right; Additional info: Pain TECHNIQUE: Imaging protocol: Radiologic exam of the right ankle. Views: 3 or more views. COMPARISON: No relevant prior studies available. FINDINGS: Bones/joints: There is an oblique fracture through the distal fibula/lateral malleolus. Soft tissues: Normal. XR/XR ankle RT min 3V* [id number] IMPRESSION: Oblique fracture through the distal fibula/lateral malleolus.
[2024-10-04 06:44] VITALS: BP 167/89; PULSE 88; RESP 16; TEMP 37.2; O2SAT 99; BMI 42.9
[2024-10-04 06:54] VITALS: BP 167/89; PULSE 72; RESP 16; O2SAT 95
--- NOTE | 2024-10-04 07:01 | ED_ITS ---
HPI - Extremity Problem General: Chief complaint: Extremity Injury, Lower Stated complaint: ANKLE PAIN Time Seen by Provider: 10/04/24 06:39 History of Present Illness: 34-year-old female presents to the ER wi th complaint of right ankle pain. She fell last night she has not borne any weight on it. She waited overnight could not bear weight on it this morning and called EMS. She does have some ecchymosis deformity medially along the heel. Significant mild swelling particularly over the lateral malleolus. No previous injury or surgery to his ankle. Related Data Home Medications Medication Instructions Recorded Confirmed hydroxyzine pamoate 25 mg capsule 25 mg PO QID 10/04/24 10/04/24 sertraline 50 mg tablet 50 mg PO DAILY 10/04/24 10/04/24 trazodone 50 mg tablet 50 mg PO DAILY 10/04/24 10/04/24 Previous Rx's Medication Instructions Recorded levetiracetam 1,000 mg tablet 1,000 mg PO BID #60 tabs 04/06/24 levetiracetam 500 mg tablet 500 mg PO DAILY #30 tabs 04/06/24 hydrocodone 5 mg-acetaminophen 325 1 tab PO Q6H PRN pain #25 tabs 10/04/24 mg tablet Allergies Allergy/AdvReac Type Severity Reaction Status Date / Time No Known Allergies Allergy Verified 10/04/24 06:47 Review of Systems Musc: Reports: joint pain and joint swelling [facility] ED PFSH: Medical History Term , repeat Gestational hypertension affecting second Gestational diabetes mellitus (GDM) affecting second Social History Smoking and tobacco/nicotine status: never used tobacco/nicotine Physical Exam Extremity: OTHER: Examination of the right ankle ecchymosis medial aspect of the calcaneus. Pain and swelling over the lateral malleolus dorsalis pedis posterior tibialis pulses easily palpable. Sensation normal. Unable to dorsi or plantarflex due to pain. Range of motion not tested. Course Vital Signs: Vital signs: Vital Signs Temperature 98.9 F 10/04/24 06:44 Pulse Rate 82 10/04/24 08:07 Respiratory Rate 16 10/04/24 08:07 Blood Pressure 153/103 10/04/24 08:07 Pulse Oximetry 96 10/04/24 08:07 Oxygen Delivery Me thod Room Air 10/04/24 06:54 MDM - Extremity (Nontraumatic) Medical Decision Making Distal fibula fracture with widening of the talus mortise joint particularly medially. Posterior splint nonweightbearing with crutches pain medications early referral to podiatry. Dr. Guadalupe did see the patient in the emergency room patient was placed in a posterior splint placed on crutches given hydrocodone for pain advised to elevate. Dr. Cardoso will make arrangements for outpatient follow-up for definitive care Lab Data Radiology Impressions Ankle X-Ray 10/04/24 06:39 IMPRESSION: Oblique fracture through the distal fibula/lateral malleolus. All radiology interpretation(s) finalized by discharge Discharge Plan Discharge Patient Disposition: Home Clinical Impression: Fracture of distal end of right fibula Condition: Stable Prescriptions: New hydrocodone-acetaminophen 5-325 mg tablet 1 tab PO Q6H PRN (Reason: pain) Qty: 25 0RF No Action levetiracetam 500 mg tablet 500 mg PO DAILY Qty: 30 8RF levetiracetam 1,000 mg tablet 1,000 mg PO BID Qty: 60 8RF trazodone 50 mg tablet 50 mg PO DAILY sertraline 50 mg tablet 50 mg PO DAILY hydroxyzine pamoate 25 mg capsule 25 mg PO QID Discharge Orders: Discharge ED (Routine); Ordered 10/04/24 Ordered By: Kaleb John Referrals: Lv Bains MD [Primary Care Provider] - Discharge Diet: Usual diet Discharge Activity: Limit activity as instructed Patient Instructions: Opioid Safety, Pain Management Activity Restrictions/Additional Instructions: Thank you for choosing [facility] for your healthcare needs today. It is very important that you follow up as instructed or that you return to the Emergency Department should you have concerns or if your condition changes or worsens in any way. You are seen in the emergency room with a complaint of ankle pain after a fall last evening. You have a lateral malleolus fracture. This is led to some wide shu of the joint and the ankle. This will likely need the further treatment at a later date. We placed you in a splint recommend on weightbearing. Use crutches to get around. You were given pain medications. Recommend elevating the foot whenever possible to mentally minimize the swelling. You can also use ice. Dr. Sagastume is seen you in the emergency room and will arrange for definitive treatment and follow-up. Coding Level of Care Code ED Range Mounter for Caroline Jones
[2024-10-04] MEDS: HYDROcodone-acetaminophen 5-325 mg Tablet 1 TAB PO (07:12)
[2024-10-04 08:07] VITALS: BP 153/103; PULSE 82; RESP 16; O2SAT 96
--- NOTE | 2024-10-04 09:10 | PM.CONSULT ---
Providers/Reason For Consult Consulting Physician/Specialty*: Dr. Chris Sagastume DPM/Podiatry Reason for Consult*: Right ankle fracture Primary Care Provider: Lv Bains MD History of Present Illness History of Present Illness Dorothea Martinez is a 34 year old female who presented to the ED this morning 10/04/24 after sustaining a fall last night. Patient has been unable to bear weight since the injury. Podiatry was consulted for treatment plan. Review of Systems General: Reports: 10 or more systems reviewed and unremarkable except in HPI and below Const: Denies: fever(s), chills or fatigue Eyes: Denies: change in vision ENMT: Denies: sinus pain Card: Denies: chest pain, palpitations or lightheadedness Resp: Denies: dyspnea GI: Denies: abdominal pain, nausea or vomiting Musc: Reports: extremity pain, extremity swelling and limited range of motion; Denies: neck pain or back pain Skin/Breast: Reports: skin swelling Neuro: Denies: numbness in extremities Medications/Allergies Home Medications Medication Instructions Recorded Confirmed Last Taken Type levetiracetam 1,000 mg tablet 1,000 mg PO BID #60 tabs 04/06/24 10/04/24 Unknown Rx levetiracetam 500 mg tablet 500 mg PO DAILY #30 tabs 04/06/24 10/04/24 Unknown Rx hydrocodone 5 mg-acetaminophen 325 1 tab PO Q6H PRN pain #25 tabs 10/04/24 Unknown Rx mg tablet hydroxyzine pamoate 25 mg capsule 25 mg PO QID 10/04/24 10/04/24 Unknown History sertraline 50 mg tablet 50 mg PO DAILY 10/04/24 10/04/24 Unknown History trazodone 50 mg tablet 50 mg PO DAILY 10/04/24 10/04/24 Unknown History Allergies Allergy/AdvReac Type Severity Reaction Status Date / Time No Known Allergies Allergy Verified 10/04/24 06:47 PFSH Acute PFSH: Medical History Term , repeat Gestational hypertension affecting second Gestational diabetes mellitus (GDM) affecting second Social History Smoking and tobacco/nicotine status: never used tobacco/nicotine Vitals/I&O/Wt Last Vital Signs Temp 98.9 F 10/04/24 06:44 Pulse 82 10/04/24 08:07 Resp 16 10/04/24 08:07 BP 153/103 10/04/24 08:07 Pulse Ox 96 10/04/24 08:07 O2 Del Method Room Air 10/04/24 06:54 10/03/24 10/04/24 10/04/24 22:59 06:59 14:59 Intake Total 0 / 0 Balance 0 / 0 Weight last 48 hrs Weight 250 lb Physical Exam Narrative: GENERAL: A&O x 3 VASCULAR: DP/PT pulses palpable 2/4 with CFT intact, <3seconds to distal digits DERMATOLOGICAL: Skin turgor and temperature is within normal limits. No open wounds or skin lesions noted. Nails are well manicured and normotrophic. No interdigital maceration noted. MUSCULOSKELETAL: right ankle ecchymoses and deformity with swelling. Full musculoskeletal exam deferred secondary to post traumatic state NEUROLOGICAL: Neurological sensation to the affected foot and ankle is present through L4-S1 dermatomes with no hyper/hypoesthesias, negative Tinel or Valleix's sign IMAGIN view x-rays of the right ankle were taken at today's visit and were personally interpreted by me. These radiographs show oblique fracture of right distal fibula at level of the mortise. Increased medial clear space. Bimalleolar equivalent ankle fracture A&P Assessment and plan (1) Closed bimalleolar fracture of right ankle: Plan -Patient seen and evaluated in ED -Right bimalleolar equivalent ankle fracture -Discussed with patient that this will need to be fixed surgically in the outpatient setting. Patient verbalized understanding -Splint was applied to right lower extremity by emergency department -Plan for ORIF right bimalleolar ankle fracture for 10/10/24. -Rest, ice, elevate and remain nonweightbearing using crutches Coding Level of Care Code Acute Code for Chg Fwd Diagnoses Closed bimalleolar fracture of right ankle S82.841A
== END 2024-10-04 08:14 | disposition home or self-care (01) ==
PROVIDERS: Emergency Provider Family Medicine; PCP Family Medicine
DX: S82.831A Other fracture of upper and lower end of right fibula, initial encounter for closed fracture (principal); W19.XXXA Unspecified fall, initial encounter
CPT/HCPCS: 73610; 99283; E0114

== ENCOUNTER 2024-10-10 07:57 | Day surgery (SDC) | payer MEDICAID, SELFPAY ==
[2024-10-10] VITALS (14 sets, daily range): BP systolic 116–157; BP diastolic 64–87; PULSE 70–101; RESP 16–22; TEMP 36.2–36.3; O2SAT 91–97; BMI 42.9
--- NOTE | 2024-10-10 | XR_ITS ---
WS: [id number] Right ankle, C-arm fluoroscopy views, 10/10/2024 Clinical Data: KIRK PICS Comparison: Right ankle, 10/04/2024 Findings: Dr. Sagastume reduce the fracture dislocation of the right ankle with a lateral fibular plate and a cable across the distal fibula and tibia. XR/XR ankle RT min 3V* [id number] Impression: Internal fixation of distal right fibular fracture.
[2024-10-10 08:29] LABS: OR HCG Qualitative Urine Negative (Negative)
--- NOTE | 2024-10-10 08:40 | P.ANESASSM_ITS ---
Pre-Anesthetic Assessment Height/Weight: Height 1.63 m Weight 113.398 kg Temp Pulse Resp BP Pulse Ox O2 Del Method 97.4 F L 101 H 18 133/64 97 Room Air 10/10/24 08:37 10/10/24 08:37 10/10/24 08:37 10/10/24 08:37 10/10/24 08:37 10/10/24 08:37 Preop Diagnosis: Bimalleolar ankle fracture right Operation Date: 10/10/24 09:40 Proposed Procedures p ORIF Ankle ORIF Bimalleolar Fracture(Right) - Chris Sagastume DPM s Ankle Arthroscopy(Right) - Chris Sagastume DPM Familial anesthetic complications: None Was Beta Sachin taken within 24 hours: N/A Was Clonidine taken within 24 hours: N/A Last intake: Intake Last Liquid Date 10/09/24 Last Liquid Time 20:00 Last Solid Date 10/09/24 Last Solid Time 18:00 Social No alcohol and No tobacco Exam alert, oriented x 3, clear to auscultation bilaterally and regular rate & rhythm Airway Mallampati: Class IV Dentition: other (no teeth) Metabolic Morbid Obesity Neuropsych Seizure (no seizures since 2013 - took her meds today) Anesthetic Plan ASA status: 2 Anesthesia: General and Regional (specify below) Risk of > 500 ml blood loss (7ml/kg in children): No Medications/Allergies Home Medications Medication Instructions Recorded Confirmed Last Taken Type levetiracetam 1,000 mg tablet 1,000 mg PO BID #60 tabs 04/06/24 10/07/24 10/10/24 Rx levetiracetam 500 mg tablet 500 mg PO DAILY #30 tabs 04/06/24 10/07/24 10/07/24 Rx hydrocodone 5 mg-acetaminophen 325 1 tab PO Q6H PRN pain #25 tabs 10/04/24 10/07/24 10/07/24 Rx mg tablet hydroxyzine pamoate 25 mg capsule 25 mg PO QID 10/04/24 10/07/24 10/10/24 History sertraline 50 mg tablet 50 mg PO DAILY 10/04/24 10/07/24 10/10/24 History trazodone 50 mg tablet 50 mg PO DAILY 10/04/24 10/07/24 10/09/24 History Allergies Allergy/AdvReac Type Severity Reaction Status Date / Time No Known Allergies Allergy Verified 10/04/24 06:47 [facility] Anesthesia Medical History Term , repeat Gestational hypertension affecting second Gestational diabetes mellitus (GDM) affecting second Social History Smoking and tobacco/nicotine status: never used tobacco/nicotine Data Anesthesia Cardiac Studies: No Data to Display
[2024-10-10] MEDS: acetaminophen 1,000 MG/100 ML PIGGYBACK 400 MG IV (08:55)
[2024-10-10] MEDS: sodium chloride 0.9% 1,000 ML 30 ML IV (09:03)
--- NOTE | 2024-10-10 09:28 | SUR.PREOP ---
09:20 RIGHT POPLATEAL NERVE BLOCK PERFORMED BY Shaheen USING 30mL OF 5%ROPIVACAINE WITH 4mg OF DECADRONE. PT ON DRUGLESS DOCTOR SHOWING NSR. PT TOLERATED PROCEDURE WELL.
--- NOTE | 2024-10-10 09:30 | P.HPUD_ITS ---
Surgery/Procedure H&P Update DATE OF PROCEDURE: October 10, 2024 DATE H&P PERFORMED: 10/04/24 H&P UPDATE INFORMATION: I have reviewed H&P completed within last 30 days, I have examined patient prior to procedure, No changes to prior documentation and H&P is in [facility] EMR on date indicated PREOP DIAGNOSIS: Bimalleolar ankle fracture right PLANNED PROCEDURE: Operation Date: 10/10/24 09:40 Proposed Procedures p ORIF Ankle ORIF Bimalleolar Fracture(Right) - Chris Sagastume DPM s Ankle Arthroscopy(Right) - Chris Sagastume DPM
--- NOTE | 2024-10-10 09:34 | ANES.PROC ---
Anesthesia Procedures Procedure/Date: 10/10/24 Nerve Block ^: Nerve Block 1: Main Anesthesia: general anesthesia Time Out Performed: Yes Consent: requested by attending/covering physician, from patient, from other, risks and benefits reviewed and patient agrees to proceed Nerve block location: popliteal (R) Anesthesia monitors applied: pulse oximetry, EKG, BP cuff and oxygen Nerve block position: supine Anesthetic Used: ropivicaine 0.5% (30 ml) and with decadron (4 mg) Ultrasound used to: recognize landmarks Nerve Stimulator Used?: No Interscalene/Femoral BLK: 4 stimuplex 21 g needle used for position and inplane approach, visualize local anesthetic spread and no vascular puncture identified Injection: neg aspiration of heme Patient Tolerated Procedure: well Complications: none
[2024-10-10] MEDS: ceFAZolin 2,000 mg SDV 2000 MG IVP (09:35)
--- NOTE | 2024-10-10 11:09 | P.BOP_ITS ---
Date of procedure: 10/10/2024 Surgeon name: Dr. Chris Sagastume D.P.M. Shop And Alteration Tailor(s) name(s): Nacho Davalos Procedure(s) performed: Open reduction internal fixation right bimalleolar ankle fracture Description of findings: Right bimalleolar equivalent ankle fracture Estimated blood loss: 5 cc Tourniquet time: 63-minute Specimen(s) removed: None Post-operative diagnosis: Right bimalleolar equivalent ankle fracture
--- NOTE | 2024-10-10 11:10 | P.OP_ITS ---
Operative Report Date of procedure: October 10, 2024 Surgeon: Chris Sagastume DPM Procedure: Date of procedure: 10/10/24 Pre-op diagnosis: Right bimalleolar equivalent ankle fracture Post-op diagnosis: Same Post-op findings: Right bimalleolar equivalent ankle fracture Procedure done: ORIF right bimalleolar equivalent ankle fracture CPT 79029 Implants: anatomic fibular plate with locking and nonlocking screws 2.7, 3.5. Tightrope. All [employer] Specimens removed: none Surgeon: Dr. Chris Sagastume DPM Engine Repairer Production: Nacho Davalos Estimated blood loss: 5cc Tourniquet time: 63 minutes Complications: none Patient is a 34-year-old female that has a history of right bimalleolar equivalent ankle fracture. The extent of the injury necessitates ORIF. A lengthy discussion regarding the procedure, including risks and complications has been had with the patient and is noted in the recent clinic note. Written and verbal consent have been obtained. All patient questions have been answered to the patient?s satisfaction. No written or verbal guarantees have been given or implied. The patient has been NPO since midnight. The history has been reviewed and the history and physical is current. The signed consent was confirmed and placed in the patient chart. Patient imaging has been reviewed and is consistent with the diagnosis. Under mild sedation, the patient was brought into the operating room and placed on the table in the supine position. IV antibiotics were given by the anesthesia team as preoperative surgical prophylaxis. IV sedation was then performed by the anesthesiateam. A pneumatic tourniquet was then placed about the right thing. A popliteal block was performed by the anesthesia department. The operative extremity was then prepped and draped in the usual fashion. The extremity was then elevated and exsanguinated before the tourniquet was inflated to 325mmHg. After inflation, the following procedure was then performed. Attention was directed to the right ankle where a 10 cm incision was made using a #15 blade overlying the fibula. Blunt dissection was carried down through subcutaneous and superficial fascia to the level of the fibula periosteum which was incised with a #15 blade to expose the underlying fracture. Fracture pattern was noted to have a large posterior spike otherwise oblique in nature. Hematoma was removed from the fracture site using combination of rongeur and curette. Next, the fracture was anatomically reduced and temporarily clamped using a lobster claw. K wires were driven perpendicular to the fracture site for provisional fixation before and interfrag screw 3.5 mm was driven across fracture site. Next, an anatomic fibular plate was placed on the lateral aspect of the fibula. The distal holes of the plate were drilled and filled using 2.7 mm locking screws from [employer]. The proximal holes of the plate were then drilled and filled using 3.5 mm locking and nonlocking screws. Good position of the plate and screws was noted clinically as well as on C-arm imaging. Syndesmosis was stressed and was noted to be compromised. At this point, it was decided tight rope fixation will be most appropriate. Syndesmotic tight rope was then inserted per manufacture protocol. Good stability of syndesmosis was noted after implantation. The site was then irrigated with copious amounts of sterile saline before attention was directed to closure. Deep tissue was closed with 3-0 Vicryl followed by subcuticular closure with 4-0 Vicryl and skin closure with 3-0 nylon in horizontal mattress fashion. The tourniquet was let down good hyperemic response was noted to all digits of the right foot. The incision site was dressed with Xeroform, 4 x 4 gauze, Kerlix, Seymour. The patient tolerated the procedure and anesthesia well and without complication. The patient was transported from the operating room to the recovery room with vital signs stable and vascular status intact to all digits of the right foot. The patient was given both written and verbal instructions to remain non weightbearing to the operative extremity, to keep dressings/splint clean, dry and intact and to take pain medication as directed. The patient will follow-up in the outpatient setting at their scheduled appointment. The patient was discharged with my personal number and was instructed to call if any questions or issues should arise. They were discharged home once anesthesia yenni oviedo was met.
--- NOTE | 2024-10-10 13:00 | ANE.PACU2 ---
Inpatient post-anesthesia follow up: Airway intact: Yes Vital signs: Temperature 97.1 F Pulse Rate 77 Respiratory Rate 18 Blood Pressure 129/79 Pulse Oximetry 93 Oxygen Delivery Me thod Room Air Oxygen Flow Rate 1 Fraction of Inspir ed Oxygen Hydration adequate: Yes Nausea and vomiting: No Pain level: 1 Mental status: Baseline
== END 2024-10-10 12:59 | disposition home or self-care (01) ==
PROVIDERS: Anesthesiology; PCP Family Medicine; Visit Provider Podiatrist Foot & Ankle Surgery
PROC: (CPT 27814; principal; 2024-10-10 09:30)
DX: S82.841A Displaced bimalleolar fracture of right lower leg, initial encounter for closed fracture (principal); W19.XXXA Unspecified fall, initial encounter; E66.01 Morbid (severe) obesity due to excess calories; Z68.41 Body mass index [BMI] 40.0-44.9, adult
CPT/HCPCS: 27814; 73610; 76000; 81025; C1713; J0131; J0690; J1100; J2250; J2405; J2704; J2795; J3010; J7030

== ENCOUNTER → 2024-10-24 14:03 | Outpatient (BNVA) | payer MEDICAID, SELFPAY | PROVIDERS: PCP Family Medicine; Visit Provider Podiatrist Foot & Ankle Surgery | DX: S82.841A Displaced bimalleolar fracture of right lower leg, initial encounter for closed fracture (principal); X58.XXXA Exposure to other specified factors, initial encounter | CPT/HCPCS: 73610 ==

== ENCOUNTER → 2024-11-07 15:38 | Outpatient (BNVA) | payer MEDICAID, SELFPAY | PROVIDERS: PCP Family Medicine; Visit Provider Podiatrist Foot & Ankle Surgery | DX: S82.841D Displaced bimalleolar fracture of right lower leg, subsequent encounter for closed fracture with routine healing; Z98.890 Other specified postprocedural states; X58.XXXD Exposure to other specified factors, subsequent encounter | CPT/HCPCS: 73610 ==

== ENCOUNTER → 2024-11-23 14:07 | Outpatient (BNVA) | payer MEDICAID, SELFPAY | PROVIDERS: PCP Family Medicine; Visit Provider Podiatrist Foot & Ankle Surgery | DX: Z98.890 Other specified postprocedural states (principal); S82.841D Displaced bimalleolar fracture of right lower leg, subsequent encounter for closed fracture with routine healing; X58.XXXD Exposure to other specified factors, subsequent encounter | CPT/HCPCS: 73610 ==

== ENCOUNTER → 2025-01-02 15:21 | Outpatient (BNVA) | payer MEDICAID, SELFPAY | PROVIDERS: PCP Family Medicine; Visit Provider Podiatrist Foot & Ankle Surgery | DX: S82.841D Displaced bimalleolar fracture of right lower leg, subsequent encounter for closed fracture with routine healing (principal); Z98.890 Other specified postprocedural states; X58.XXXD Exposure to other specified factors, subsequent encounter | CPT/HCPCS: 73610 ==